=== PATIENT | female | born 1995 | race Caucasian/White ===

== ENCOUNTER 2025-07-06 20:05 | Outpatient (CLI) | payer OTHER, SELFPAY ==
[2025-07-06 20:23] VITALS: PULSE 116; O2SAT 98
[2025-07-06 20:26] VITALS: BP 111/62; PULSE 115; RESP 20; TEMP 37.7
[2025-07-06 20:36] VITALS: BMI 30.7
[2025-07-06] MEDS: Lactated Ringers 1,000 ML 999 ML IV (21:01)
--- NOTE | 2025-07-06 21:15 | OB.TRI.NOTE ---
HPI - General HPI Narrative JAEL BHANDARI, is a 30 F at 37.2 weeks gestation who presents for nausea, body aches, and overall malaise. Positive but decreased movements. Maternal Data Information OSMIN Calculator Estimated Delivery Date Method Current WG Current Estimate 07/25/25 Manual 37w 3d PFSH PFSH Home Medications ?Medication ?Instructions ?Recorded ?Last Taken ?Type magtein 3 cap PO DAILY 07/06/25 07/06/25 09:00 History vit no.95-ferrous 1 tab PO DAILY 07/06/25 07/06/25 09:00 History fumarate 28 mg-folic acid 800 mcg tablet () Allergy/AdvReac Type Severity Reaction Status Date / Time No Known Allergies Allergy Verified 07/06/25 20:47 ROS Eyes Eyes: Denies blurry vision Cardiovascular Cardiovascular: Reports none; Denies chest pain at rest, chest pain with activity or dizziness Respiratory/Chest Respiratory/Chest: Denies cough or dyspnea Gastrointestinal Gastrointestinal: Reports none and other; Denies diarrhea or vomiting Genitourinary Genitourinary: Denies dysuria Musculoskeletal Musculoskeletal: Reports none Integumentary Integumentary: Reports none; Denies rash Neurologic Neurologic: Denies dizziness, headache(s) or other visual disturbances Psychiatric Psychiatric: Reports none Physical Exam Const alert and no apparent distress General Appearance: cooperative Orientation / Consciousness: awake Exam Limitations: no limitations HEENT normocephalic Eyes General Eye: normal appearance of both eyes Neck full ROM Chest inspection of chest normal Resp normal respiratory effort and normal air movement Effort and Inspection: symmetric chest movement Auscultation: clear to auscultation bilaterally Cardio regular rate GI soft to palpation, non-tender and non-distended Inspection: and other Back/Spine normal ROM Extremity full ROM, normal capillary refill and no calf tenderness Skin no rashes or lesions noted Neuro oriented x3 and CN's II-XII intact bilaterally Psych mental status grossly normal NST FHR Rate Baby A Baseline: 150 Variability:: Moderate Accelerations:: 15 x 15 Decelerations:: None NST Reactive:: Yes FHR Category:: Category I Uterine Activity:: irritability Assessment & Plan (1) 37 weeks gestation of : (2) Body aches: (3) Malaise: (4) Decreased movements affecting management of mother, antepartum: PLAN: Plan Feeling movements IV fluid bolus Afebrile CBC - normal ranges Zofran 4 mg IV x 1 now Tylenol 1000 mg PO now Patient stated feeling much better D/C home with follow up in office
[2025-07-06 21:17] LABS: Hematocrit 34.8 % (37-47); Hemoglobin 11.7 g/dL (12.0-15.0); Immature Granulocytes Count 0.070 X10^3/uL (0.0-0.0); Mean Corp Hgb Conc 33.6 g/dL (32-36); Mean Corpuscular Volume 90.6 fL (81-99); Mean Platelet Vol. 10.0 fl (6.2-12.0); NRBC Flagged by Analyzer 0 % (0-5); POSITIVE DIFFERENTIAL YES; Platelet Count 337 K/mm3 (150-450); RBC Distribution Width CV 13.3 % (11.6-14.6); RBC Distribution Width SD 43.9 fl (35.1-43.9); Red Blood Count 3.84 M/mm3 (4.2-5.4); White Blood Count 12.9 K/mm3 (4.4-11.0)
== END 2025-07-06 22:45 | disposition home or self-care (01) ==
LOC: WPOUT 20:11 → WP 20:11
PROVIDERS: Referring Provider Advanced Practice Midwife; Visit Provider Advanced Practice Midwife
DX: O36.8130 Decreased fetal movements, third trimester, not applicable or unspecified (principal); Z3A.37 37 weeks gestation of pregnancy
CPT/HCPCS: 96374; 96361; 36415; 59025; 59050; 85025; 86850; 86900; 86901; 99221; G0378; J2405